=== PATIENT | male | born 1975 | race African-American/Black ===

== ENCOUNTER 2022-02-16 20:10 | Emergency (ER) | payer MEDICAID ==
[~2022-02-16] VITALS: Ht 170.2 cm; Wt 62.6 kg
[2022-02-16 20:10] VITALS: BP 117/80
[2022-02-16 22:55] LABS: Urine Bacteria FEW /hpf (None Seen); Urine Blood Negative /uL (Negative); Urine Mucus FEW (None Seen); Urine Specific Gravity 1.023 (1.001-1.035); Urine WBC 28 /hpf (0 - 3)
[2022-02-16] MEDS ORDERED: CEPH-509 PO (23:17)
[2022-02-16] MEDS: cefTRIAXone SOD 1,000 MG VL IM ONE (23:26)
== END 2022-02-16 23:30 | disposition home or self-care (01) ==
LOC: ER 20:10
DX: N39.0 Urinary tract infection, site not specified (principal); G82.20 Paraplegia, unspecified; R50.9 Fever, unspecified
CPT/HCPCS: 81001; 96372; 99283; J0696

== ENCOUNTER 2025-05-07 00:49 | Emergency (ER) | payer MEDICAID, MEDICARE, OTHER ==
[~2025-05-07 00:49] MED LIST: CEPH-509 PO
== END 2025-05-07 01:00 | disposition left against medical advice (07) ==
LOC: ER 00:52
DX: H53.8 Other visual disturbances (principal); Z53.21 Procedure and treatment not carried out due to patient leaving prior to being seen by health care provider

== ENCOUNTER 2025-05-07 08:29 | Inpatient (IN) | payer MEDICARE, MEDICAID ==
[~2025-05-07] VITALS: Ht 170.2 cm; Wt 66.0 kg
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
[2025-05-07 09:46] LABS: Hematocrit 44.7 % (41.0-53.0); Hemoglobin 15.1 g/dL (13.5-17.5); Mean Corpuscular Hemoglobin 30.3 pg (28.0-32.0); Mean Corpuscular Volume 89.8 fL (80.0-100.0); Nucleated Red Blood Cells % 0.1 %
[2025-05-07] MEDS: SODIUM CHLORIDE 0.9% 1,000 ML IV ONE (09:47)
[2025-05-07 10:03] LABS: Chloride 101 mmol/L (98-107); Potassium 3.8 mmol/L (3.5-5.1); Sodium 139 mmol/L (136-145)
[2025-05-07 10:04] LABS: Anion Gap 12 (5-15); Carbon Dioxide 26 mmol/L (20-31)
[2025-05-07 10:05] LABS: Calcium 9.4 mg/dL (8.7-10.4)
[2025-05-07 10:09] LABS: BUN/Creatinine Ratio 10.7 (10.0-20.0)
[2025-05-07 10:11] LABS: Blood Urea Nitrogen 6 mg/dL (9-23); Glucose 149 mg/dL (74-106)
[2025-05-07] MEDS ORDERED: ACETAMINOPHEN 325 MG TAB PO PRN (13:45)
[2025-05-07 14:26] LABS: Urine Protein, UAD Negative (Negative)
[2025-05-07 15:03] LABS: Triglycerides 91 mg/dL (< 150)
[2025-05-07 15:05] LABS: Cholesterol 133 mg/dL (< 200)
[2025-05-07 15:08] LABS: HDL Cholesterol 34 mg/dL (40-59)
[2025-05-07 17:37] VITALS: BP 133/89; PULSE 102; RESP 18; TEMP 98.7; O2SAT 100
[2025-05-07 17:40] VITALS: BP 133/89; PULSE 102; RESP 18; TEMP 98.7; O2SAT 100
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
[2025-05-07] MEDS ORDERED: DEXTROSE (50%) 50ML SYRG IV PRN (18:45)
[2025-05-07 20:00] VITALS: O2SAT 98
[2025-05-07 20:56] VITALS: BP 116/75; PULSE 104; RESP 16; TEMP 100.7; O2SAT 98
[2025-05-07] MEDS: ACCU-CHEK COMFORT CURVE STRIP VI SCH (21:42)
[2025-05-07] MEDS: InsuLIN REG 1unit/0.01ml Soln (100units/ml) SC SCH (21:48)
[2025-05-08] VITALS (8 sets, daily range): BP systolic 102–139; BP diastolic 62–87; PULSE 86–109; RESP 14–19; TEMP 97.3–99.7; O2SAT 95–100
[2025-05-08] MEDS ORDERED: INSULIN LISPRO (HUMAN) 100 UNITS/ML ML SC SCH (07:00)
[2025-05-08 07:36] LABS: Hematocrit 41.9 % (41.0-53.0); Hemoglobin 14.3 g/dL (13.5-17.5); Mean Corpuscular Hemoglobin 30.4 pg (28.0-32.0); Mean Corpuscular Volume 89.0 fL (80.0-100.0); Nucleated Red Blood Cells % 0.0 %
[2025-05-08 07:38] LABS: Calcium 9.5 mg/dL (8.7-10.4); Chloride 103 mmol/L (98-107); Potassium 3.9 mmol/L (3.5-5.1); Sodium 140 mmol/L (136-145)
[2025-05-08 07:39] LABS: Anion Gap 9 (5-15); Carbon Dioxide 28 mmol/L (20-31)
[2025-05-08 07:44] LABS: Glucose 100 mg/dL (74-106)
[2025-05-08 07:45] LABS: BUN/Creatinine Ratio 11.1 (10.0-20.0); Blood Urea Nitrogen < 5 mg/dL (9-23); Magnesium 2.0 mg/dL (1.6-2.6)
[2025-05-08] MEDS: LACTULOSE 20Gm/30ML SOLN PO SCH (09:37)
[2025-05-08] MEDS: ENOXAPARIN SOD 40 MG/0.4 ML SYRINGE SC SCH (09:38)
[2025-05-08] MEDS: ERGOCALCIFEROL 50,000 UNIT(1.25MG) CAP PO SCH (09:40)
--- NOTE | 2025-05-08 10:07 | DVH ---
EXAM: XY CHEST XRAY 1 VIEW Indication: Sepsis, rule out PNA Technique: Single frontal view of the chest was obtained Comparison: None FINDINGS: Lines and Tubes: None Lungs: No focal consolidation. Pleura: No effusion. No pneumothorax. Cardiomediastinal contours: Unremarkable Bones: No acute osseous abnormality. IMPRESSION: No acute cardiopulmonary disease.
[2025-05-08] MEDS: INSULIN LISPRO (HUMAN) 100 UNITS/ML ML SC SCH (18:29)
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
[2025-05-08] MEDS: INSULIN LANTUS (GLARGINE) 1 /0.01ml (100units/ml) SC SCH (22:07)
[2025-05-09 01:00] VITALS: BP 149/84; PULSE 85; RESP 16; TEMP 97.7; O2SAT 99
[2025-05-09 05:00] VITALS: BP 98/51; PULSE 91; RESP 16; TEMP 97.7; O2SAT 97
[2025-05-09 07:14] LABS: Hematocrit 41.3 % (41.0-53.0); Hemoglobin 14.1 g/dL (13.5-17.5); Mean Corpuscular Hemoglobin 29.7 pg (28.0-32.0); Mean Corpuscular Volume 87.4 fL (80.0-100.0); Nucleated Red Blood Cells % 0.0 %
[2025-05-09 07:23] LABS: Alkaline Phosphatase 105 U/L (46-116); Anion Gap 10 (5-15); BUN/Creatinine Ratio 17.8 (10.0-20.0); Calcium 9.5 mg/dL (8.7-10.4); Carbon Dioxide 28 mmol/L (20-31); Chloride 102 mmol/L (98-107); Potassium 4.4 mmol/L (3.5-5.1); Sodium 140 mmol/L (136-145); Total Protein 6.9 g/dL (5.7-8.2)
[2025-05-09 07:24] LABS: Albumin 4.2 g/dL (3.2-4.8); Bilirubin, Total 0.6 mg/dL (0.2-1.0)
[2025-05-09 07:30] VITALS: PULSE 94; RESP 18; O2SAT 97
[2025-05-09 07:30] LABS: Alanine Aminotransferase 58 U/L (7-40); Blood Urea Nitrogen 8 mg/dL (9-23); Glucose 133 mg/dL (74-106)
[2025-05-09 11:22] VITALS: BP 119/80; PULSE 94; RESP 18; TEMP 97.8; O2SAT 97
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
[2025-05-09] MEDS ORDERED: ERGO1CAP23 PO ×2 (11:40)
[2025-05-09] MEDS ORDERED: ACET-1882 PO ×2 (11:40)
[2025-05-09] MEDS ORDERED: LACT10SO3 PO ×2 (11:40)
[2025-05-09] MEDS ORDERED: INSLANTI SC ×2 (11:40)
[2025-05-09] MEDS ORDERED: METF-370 PO ×2 (11:40)
== END 2025-05-09 12:55 | disposition home or self-care (01) | DRG 638 ==
LOC: ER 08:29 → OVERFLOW 13:34 → WEST WING 17:29
PROVIDERS: ADMIT Student in an Organized Health Care Education/Training Program; ATTEND Student in an Organized Health Care Education/Training Program
DX: E11.65 Type 2 diabetes mellitus with hyperglycemia (principal); G82.20 Paraplegia, unspecified; N39.0 Urinary tract infection, site not specified; E55.9 Vitamin D deficiency, unspecified; R26.89 Other abnormalities of gait and mobility; Z83.3 Family history of diabetes mellitus; Z99.3 Dependence on wheelchair; Z80.42 Family history of malignant neoplasm of prostate; Z79.2 Long term (current) use of antibiotics; Z79.899 Other long term (current) drug therapy
CPT/HCPCS: 36415; 71045; 80048; 80053; 80061; 81001; 82306; 82607; 82962; 83036; 83735; 84100; 84443; 85025; 87040; 87086; 87088; 87186; 96360; G0378; J1815